=== PATIENT | female | born 1965 | race Caucasian/White ===

== ENCOUNTER 2018-08-10 01:31 | Emergency (ER) | payer SELFPAY ==
[~2018-08-10] VITALS: Ht 157.5 cm; Wt 76.5 kg
[2018-08-10 01:34] VITALS: BP 173/74; PULSE 110; RESP 18; Ht 157.5 cm; Wt 76.5 kg
== END 2018-08-10 03:08 | disposition left against medical advice (07) ==
LOC: E/R 01:31
DX: Z53.21 Procedure and treatment not carried out due to patient leaving prior to being seen by health care provider (principal)